=== PATIENT | female | born 1990 | race Caucasian/White ===

== ENCOUNTER 2021-02-05 03:02 | Emergency (ER) | payer OTHER ==
[2021-02-05] MEDS ORDERED: Metoclopramide 10 MG/2 ML SDV IVPUSH ONE (03:27)
[2021-02-05] MEDS ORDERED: Lactated Ringers 1,000 ML IV ONE (03:27)
[2021-02-05] MEDS ORDERED: Ketorolac 30 MG/ML SDV IVPUSH ONE (03:27)
[2021-02-05] MEDS ORDERED: diphenhydrAMINE 25 MG Cap PO ONE (03:27)
--- NOTE | 2021-02-05 03:34 | EDM.PDOC ---
ED HPI GENERAL MEDICAL PROBLEM - General Chief Complaint: Headache Stated Complaint: headache Time Seen by Provider: 02/05/21 03:23 Source of Information: Reports: Patient - History of Present Illness INITIAL COMMENTS - FREE TEXT/NARRATIVE: Jordyn is a 30 y/o female who comes to the ER with a headache. She reports not feeling well over the weekend and having a cold that may have turned into a sinus infection since she is congested, but tonight she started to get her usual migraine sx. Describes the headache as on one side of her head and more frontal alothough some pain in the base of her neck. She is a bit light sensitive and can feel some of the nausea coming on. She does have Zomig and Diclofenac at home for her headaches, but was reluctant to take them with taking other OTC meds for the cold sx. Is congested, but has clear nasal discharge. Head Pain Score (Numeric/FACES): 8 - Related Data Allergies Allergy/AdvReac Type Severity Reaction Status Date / Time No Known Allergies Allergy Verified 12/27/17 19:57 Home Meds: Home Meds Cetirizine [ZyrTEC] 10 mg PO DAILY 12/27/17 [History] Rizatriptan Benzoate [Rizatriptan] 10 mg PO DAILY 12/27/17 [History] Past Medical History - Past Health History Medical/Surgical History: Denies Medical/Surgical History Gastrointestinal History: Reports: None Genitourinary History: Reports: Other (See Below) Other Genitourinary History: genital warts Neurological History: Reports: Migraines Psychiatric History: Reports: Anxiety, Depression - Past Surgical History GI Surgical History: Reports: None Female Surgical History: Reports: None Social & Family History - Family History Family Medical History: No Pertinent Family History - Tobacco Use Tobacco Use Status *Q: Never Tobacco User - Caffeine Use Caffeine Use: Reports: Coffee, Soda - Recreational Drug Use Recreational Drug Use: No Review of Systems - Review of Systems Review Of Systems: See Below Constitutional: Reports: No Symptoms Eyes: Reports: Photophobia Ears: Reports: No Symptoms Nose: Reports: Clear Discharge Mouth/Throat: Reports: No Symptoms Respiratory: Reports: No Symptoms Cardiovascular: Reports: No Symptoms GI/Abdominal: Reports: Nausea Genitourinary: Reports: No Symptoms Musculoskeletal: Reports: No Symptoms Skin: Reports: No Symptoms Neurological: Reports: Headache Psychiatric: Reports: No Symptoms ED EXAM, GENERAL - Physical Exam Exam: See Below General Appearance: Alert, WD/WN, No Apparent Distress (Adult female) Eye Exam: Bilateral Eye: PERRL Ears: Normal External Exam, Normal Canal, Hearing Grossly Normal, Normal TMs Nose: Normal Inspection, Normal Mucosa Throat/Mouth: Normal Inspection, Normal Lips, Normal Oropharynx, Normal Voice Head: Atraumatic, Normocephalic Neck: Normal Inspection, Supple, Non-Tender Respiratory/Chest: No Respiratory Distress, Lungs Clear Cardiovascular: Normal Peripheral Pulses, Regular Rate, Rhythm GI/Abdominal: Normal Bowel Sounds, Soft (Female) Exam: Deferred Rectal (Female) Exam: Deferred Back Exam: Normal Inspection, Full Range of Motion Extremities: Normal Inspection, Normal Range of Motion, Normal Capillary Refill Neurological: Alert, Oriented, CN II-XII Intact, Normal Cognition, Normal Gait, Normal Reflexes Psychiatric: Normal Affect, Normal Mood Skin Exam: Warm, Dry, Intact, Normal Color Lymphatic: No Adenopathy Course - Vital Signs Text/Narrative:: 0323 The patient was seen by the [facility] Will treat her with IV fluids, Toradol 30mg IVP, Reglan 10mg IVP, and Benadryl 25mg IVP. 0400 Feeling better. Will discharge to home after IV fluids done. Written instructions were given and she left the ER in stable condition. Last Recorded V/S: Last Vital Signs Temp 36.3 C 02/05/21 03:07 Pulse 96 02/05/21 03:07 Resp 18 02/05/21 03:07 BP 127/82 02/05/21 03:07 Pulse Ox 98 02/05/21 03:07 - Orders/Labs/Meds Orders: Active Orders 24 hr Category Date Time Status Lactated Ringers [Ringers, Lactated] 1,000 ml Med 02/05/21 03:27 Ordered IV ONETIME Medication Orders Lactated Ringer's (Ringers, Lactated) 1,000 mls @ 999 mls/hr IV ONETIME ONE Stop: 02/05/21 04:27 Last Admin: 02/05/21 03:35 Dose: 999 mls/hr Documented by: Meds: Medications Generic Name Dose Route Start Last Admin Trade Name Freq PRN Reason Stop Dose Admin Lactated Ringer's 1,000 mls @ 999 mls/hr 02/05/21 03:27 02/05/21 03:35 Ringers, Lactated IV 02/05/21 04:27 999 mls/hr ONETIME ONE Administration Discontinued Medications Generic Name Dose Route Start Last Admin Trade Name [place] PRN Reason Stop Dose Admin Diphenhydramine HCl 25 mg 02/05/21 03:27 02/05/21 03:38 Diphenhydramine 25 Mg Cap PO 02/05/21 03:28 25 mg ONETIME ONE Administration Ketorolac Tromethamine 30 mg 02/05/21 03:27 02/05/21 03:40 Ketorolac 30 Mg/Ml Sdv IVPUSH 02/05/21 03:28 30 mg ONETIME ONE Administration Metoclopramide HCl 10 mg 02/05/21 03:27 02/05/21 03:40 Metoclopramide 10 Mg/2 Ml Sdv IVPUSH 02/05/21 03:28 10 mg ONETIME ONE Administration Departure - Departure Time of Disposition: 04:02 Disposition: Home, Self-Care 01 Condition: Good Clinical Impression: Headache Qualifiers: Headache type: unspecified Headache chronicity pattern: acute headache Intractability: not intractable Qualified Code(s): R51.9 - Headache, unspecified - Discharge Information Instructions: Migraine Headache Referrals: PCP,None [Primary Care Provider] - Forms: ED Department Discharge Additional Instructions: -Rest -Stay hydrated -Use headache meds as needed at home. -Follow up with your PCP io return to the ER if symptoms worse or other concerns Sepsis Event Note (ED) - Evaluation Sepsis Screening Result: No Definite Risk - Focused Exam Vital Signs: Vital Signs Temp Pulse Resp BP Pulse Ox 02/05/21 03:07 36.3 C 96 18 127/82 98 - Problem List & Annotations (1) Headache SNOMED Code(s): 34067821 Code(s): R51.9 - HEADACHE, UNSPECIFIED Status: Acute Current Visit: Yes Annotation/Comment:: Sx better after meds. Will have pt monitor sinus sx before starting any abx. Qualifiers: Headache type: unspecified Headache chronicity pattern: acute headache Intractability: not intractable Qualified Code(s): R51.9 - Headache, unspecified - Problem List Review Problem List Initiated/Reviewed/Updated: Yes - My Orders Last 24 Hours: My Active Orders 02/05/21 03:27 Lactated Ringers [Ringers, Lactated] 1,000 ml IV ONETIME - Assessment/Plan Last 24 Hours: My Active Orders 02/05/21 03:27 Lactated Ringers [Ringers, Lactated] 1,000 ml IV ONETIME Plan: See above
== END 2021-02-05 04:20 | disposition home or self-care (01) ==
LOC: VM.ED 03:02
DX: R51.9 Headache, unspecified (principal)
CPT/HCPCS: 96374; 96375; 99283; 99283-25; A9270-GY; J1885; J2765; J7120

== ENCOUNTER 2022-06-16 19:29 | Emergency (ER) | payer OTHER ==
[2022-06-16] MEDS ORDERED: Ketorolac 30 MG/ML SDV IVPUSH ONE (19:54)
[2022-06-16] MEDS ORDERED: Ondansetron 4 MG/2 ML SDV IVPUSH ONE (19:54)
[2022-06-16] MEDS ORDERED: diphenhydrAMINE 50 MG/ML SDV IVPUSH ONE (19:54)
== END 2022-06-16 20:15 | disposition home or self-care (01) ==
LOC: VM.ED 19:29
DX: G43.909 Migraine, unspecified, not intractable, without status migrainosus (principal)
CPT/HCPCS: 96374; 99283; 99283-25; J1200; J1885; J2405

== ENCOUNTER 2022-08-02 16:03 | Emergency (ER) | payer OTHER | END 2022-08-02 16:36 | disposition home or self-care (01) | LOC: VM.ED 16:03 | DX: S61.012A Laceration without foreign body of left thumb without damage to nail, initial encounter (principal); W45.8XXA Other foreign body or object entering through skin, initial encounter | CPT/HCPCS: 12001; 99282 ==